=== PATIENT | male | born 1975 | race Two or more races ===

== ENCOUNTER 2021-11-05 13:07 | Inpatient (IN) | payer OTHER ==
[~2021-11-05] VITALS: Ht 162.6 cm; Wt 82.1 kg
[2021-11-05 13:15] VITALS: BP 133/89
[2021-11-05] MEDS ORDERED: ONDANSETRON HCL 4 MG/2 ML VIAL IV PRN (15:00)
[2021-11-05] MEDS ORDERED: ACETAMINOPHEN 650 MG RECT SUPP PR PRN (15:00)
[2021-11-05] MEDS ORDERED: cefTRIAXone 1GM/50ML D5W 50 ML IV ONE (15:00)
[2021-11-05 16:00] VITALS: BP 139/79
[2021-11-05] MEDS: MORPHINE SULFATE INJECTION 2 MG/ML SYRG IV PRN ×2 (16:27→20:56)
[2021-11-05] MEDS: SODIUM CHLORIDE 0.9% 1,000 ML IV SCH (16:28)
[2021-11-05 16:47] VITALS: BP 133/89
[2021-11-05] MEDS ORDERED: LISI20TA28 PO (16:47)
[2021-11-05] MEDS ORDERED: TRAZ100T3 PO (16:47)
[2021-11-05 17:00] VITALS: BP 139/79
[2021-11-05 17:58] LABS: Eosinophils # (auto) 0.1 10 ^3/uL (0-0.8)
[2021-11-05 17:59] LABS: Basophils # (auto) 0.1 10 ^3/uL (0-0.2); Eosinophils % (auto) 1.3 % (0.0-7.0); Lymphocytes % (auto) 21.5 % (10.0-50.0); Mean Corpuscular Hemoglobin 26.9 pg (28.0-32.0); Mean Corpuscular Hgb Conc. 33.5 g/dL (32.0-36.0); Mean Corpuscular Volume 80.4 fL (80.0-100.0); Monocytes # (auto) 1.2 10 ^3/uL (0-1.3); Monocytes % (auto) 13.2 % (0.0-12.0); Neutrophils # (auto) 5.9 10 ^3/uL (1.6-8.6); Nucleated Red Blood Cells % 0.1 %; Red Blood Cells 5.59 10^6/uL (4.5-5.90); Red Cell Distribution Width 14.6 % (11.8-14.3); White Blood Cell 9.3 10^3/uL (4.4-10.8)
[2021-11-05 18:14] LABS: INR 1.05 (0.9-1.15); Partial Thromboplastin Time 30.6 sec (23.6-33.0)
[2021-11-05 18:20] LABS: Albumin 3.7 g/dL (3.4-5.0); Calcium 8.7 mg/dL (8.5-10.1)
[2021-11-05 18:39] LABS: BUN/Creatinine Ratio 29.6; Bilirubin, Total 0.6 mg/dL (0.2-1.0); Total Protein 7.1 g/dL (6.4-8.2)
[2021-11-05] MEDS: PANTOPRAZOLE 40 MG/10 ML VIAL INJ IV SCH (20:56)
[2021-11-05] MEDS: metroNIDAZOLE 500MG/100ML 100 ML IV SCH (20:56)
[2021-11-05 21:30] VITALS: BP 151/82
[2021-11-06] MEDS: SODIUM CHLORIDE 0.9% 1,000 ML IV SCH ×3 (01:00→21:00)
[2021-11-06] MEDS: MORPHINE SULFATE INJECTION 2 MG/ML SYRG IV PRN ×5 (01:12→21:51)
[2021-11-06 05:00] VITALS: BP 146/81
[2021-11-06] MEDS: metroNIDAZOLE 500MG/100ML 100 ML IV SCH ×3 (05:14→21:50)
[2021-11-06 06:09] LABS: Basophils # (auto) 0.1 10 ^3/uL (0-0.2); Basophils % (auto) 0.8 % (0.0-2.0); Eosinophils # (auto) 0.1 10 ^3/uL (0-0.8); Eosinophils % (auto) 0.7 % (0.0-7.0); Hematocrit 42.8 % (41.0-53.0); Hemoglobin 14.5 g/dL (13.5-17.5); Lymphocytes # (auto) 1.7 10 ^3/uL (0.4-5.4); Lymphocytes % (auto) 19.1 % (10.0-50.0); Mean Corpuscular Hemoglobin 27.1 pg (28.0-32.0); Mean Corpuscular Hgb Conc. 33.9 g/dL (32.0-36.0); Mean Corpuscular Volume 79.9 fL (80.0-100.0); Neutrophils # (auto) 5.9 10 ^3/uL (1.6-8.6); Neutrophils % (auto) 68.4 % (37.0-80.0); Nucleated Red Blood Cells % 0.1 %; Red Blood Cells 5.35 10^6/uL (4.5-5.90); Red Cell Distribution Width 14.4 % (11.8-14.3); White Blood Cell 8.7 10^3/uL (4.4-10.8)
[2021-11-06 06:21] LABS: Albumin 3.5 g/dL (3.4-5.0); Calcium 8.2 mg/dL (8.5-10.1); Potassium 3.6 mmol/L (3.5-5.1)
[2021-11-06 06:24] LABS: Bilirubin, Total 0.5 mg/dL (0.2-1.0); Total Protein 6.9 g/dL (6.4-8.2)
[2021-11-06 09:00] VITALS: BP 139/73
[2021-11-06] MEDS: cefTRIAXone 1GM/50ML D5W 50 ML IV SCH (09:08)
[2021-11-06] MEDS: PANTOPRAZOLE 40 MG/10 ML VIAL INJ IV SCH ×2 (09:09→21:50)
[2021-11-06] MEDS ORDERED: GASTROGRAFIN 120 ML SOL ONE (09:17)
[2021-11-06 13:00] VITALS: BP 141/92
[2021-11-06 17:00] VITALS: BP 131/72
[2021-11-06] MEDS: traZODone HCL 50 MG TAB PO SCH (21:50)
[2021-11-06 22:20] VITALS: BP 135/79
[2021-11-07] MEDS: metroNIDAZOLE 500MG/100ML 100 ML IV SCH ×3 (05:44→21:27)
[2021-11-07 05:52] VITALS: BP 138/72
[2021-11-07 06:03] LABS: Basophils # (auto) 0.1 10 ^3/uL (0-0.2); Basophils % (auto) 1.1 % (0.0-2.0); Eosinophils # (auto) 0.3 10 ^3/uL (0-0.8); Monocytes # (auto) 0.9 10 ^3/uL (0-1.3); Nucleated Red Blood Cells % 0.1 %
[2021-11-07 06:06] LABS: Eosinophils % (auto) 4.4 % (0.0-7.0); Hematocrit 40.4 % (41.0-53.0); Hemoglobin 13.9 g/dL (13.5-17.5); Lymphocytes # (auto) 1.6 10 ^3/uL (0.4-5.4); Lymphocytes % (auto) 26.3 % (10.0-50.0); Mean Corpuscular Hemoglobin 27.4 pg (28.0-32.0); Mean Corpuscular Hgb Conc. 34.5 g/dL (32.0-36.0); Mean Corpuscular Volume 79.5 fL (80.0-100.0); Monocytes % (auto) 14.4 % (0.0-12.0); Neutrophils # (auto) 3.3 10 ^3/uL (1.6-8.6); Neutrophils % (auto) 53.8 % (37.0-80.0); Red Blood Cells 5.08 10^6/uL (4.5-5.90); Red Cell Distribution Width 13.8 % (11.8-14.3); White Blood Cell 6.1 10^3/uL (4.4-10.8)
[2021-11-07 06:35] LABS: Potassium 3.7 mmol/L (3.5-5.1)
[2021-11-07 06:39] LABS: BUN/Creatinine Ratio 19.2; Calcium 8.5 mg/dL (8.5-10.1)
[2021-11-07] MEDS: SODIUM CHLORIDE 0.9% 1,000 ML IV SCH ×2 (06:39→17:00)
[2021-11-07 08:00] VITALS: BP 132/84
[2021-11-07] MEDS: cefTRIAXone 1GM/50ML D5W 50 ML IV SCH (09:00)
[2021-11-07] MEDS: MORPHINE SULFATE INJECTION 2 MG/ML SYRG IV PRN ×3 (09:00→21:27)
[2021-11-07] MEDS: PANTOPRAZOLE 40 MG/10 ML VIAL INJ IV SCH ×2 (10:02→21:27)
[2021-11-07 12:35] VITALS: BP 131/80
[2021-11-07 16:00] VITALS: BP 135/81
[2021-11-07] MEDS ORDERED: MAGNESIUM CITRATE SOLUTION 300 ML BTL PO ONE (21:00)
[2021-11-07] MEDS: traZODone HCL 50 MG TAB PO SCH (21:27)
[2021-11-07 22:00] VITALS: BP 139/82
[2021-11-08] VITALS (7 sets, daily range): BP systolic 113–139; BP diastolic 68–90
[2021-11-08] MEDS: MORPHINE SULFATE INJECTION 2 MG/ML SYRG IV PRN ×4 (02:35→21:39)
[2021-11-08] MEDS: SODIUM CHLORIDE 0.9% 1,000 ML IV SCH ×3 (02:36→23:00)
[2021-11-08] MEDS: metroNIDAZOLE 500MG/100ML 100 ML IV SCH ×3 (05:53→21:19)
[2021-11-08] MEDS ORDERED: MAGNESIUM CITRATE SOLUTION 300 ML BTL PO ONE (08:00)
[2021-11-08] MEDS: PANTOPRAZOLE 40 MG/10 ML VIAL INJ IV SCH ×2 (09:02→21:21)
[2021-11-08] MEDS: LISINOPRIL 10 MG TAB PO SCH (09:03)
[2021-11-08] MEDS ORDERED: LIDOCAINE VISCOUS 2% 15ML UD ONE (12:10)
[2021-11-08] MEDS ORDERED: fentaNYL CITRATE 100 MCG/2 ML VL ONE (14:11)
[2021-11-08] MEDS ORDERED: MEPERIDINE HCL (25 MG/ML) 1ML VIAL ONE (14:11)
[2021-11-08] MEDS ORDERED: MIDAZOLAM HCL 2MG/2ML 2ml VIAL (1mg/ml) ONE (14:12)
[2021-11-08] MEDS ORDERED: DexAMETHasone SOD PHOS 10MG/1ML VIAL INJ ONE (14:15)
[2021-11-08] MEDS ORDERED: PROPOFOL 10 MG/ML 20 ML IV ONE (14:15)
[2021-11-08] MEDS ORDERED: MIDAZOLAM HCL 2MG/2ML 2ml VIAL (1mg/ml) IV PRN (14:45)
[2021-11-08] MEDS ORDERED: ePHEDrine SULFATE 50 MG/ML AMP IV PRN (14:45)
[2021-11-08] MEDS ORDERED: MORPHINE SULFATE 4 MG/ML SYR/VIAL IV PRN (14:45)
[2021-11-08] MEDS ORDERED: HYDROmorphone HCL 2 MG/ML VL IV PRN (14:45)
[2021-11-08] MEDS ORDERED: LABETALOL HCL 5 MG/ML 4ML SYRINGE IV PRN (14:45)
[2021-11-08] MEDS ORDERED: ONDANSETRON HCL 4 MG/2 ML VIAL IV PRN (14:45)
[2021-11-08] MEDS: SUCRALFATE 1 GM/10 ML ORAL SUSP PO SCH ×2 (16:50→21:22)
[2021-11-08] MEDS: traZODone HCL 50 MG TAB PO SCH (21:22)
[2021-11-09] VITALS: BP 102/55
[2021-11-09] MEDS: MORPHINE SULFATE INJECTION 2 MG/ML SYRG IV PRN (03:53)
[2021-11-09 05:00] VITALS: BP 113/69
[2021-11-09] MEDS: metroNIDAZOLE 500MG/100ML 100 ML IV SCH ×2 (05:40→14:00)
[2021-11-09] MEDS: SUCRALFATE 1 GM/10 ML ORAL SUSP PO SCH ×2 (06:17→11:30)
[2021-11-09 08:00] VITALS: BP 151/65
[2021-11-09] MEDS: SODIUM CHLORIDE 0.9% 1,000 ML IV SCH (08:36)
[2021-11-09] MEDS: PANTOPRAZOLE 40 MG/10 ML VIAL INJ IV SCH (10:00)
[2021-11-09] MEDS: LISINOPRIL 10 MG TAB PO SCH (10:00)
[2021-11-09] MEDS ORDERED: SUCR1SUS10 PO (12:32)
[2021-11-09] MEDS ORDERED: PANT40TA2 PO (12:32)
== END 2021-11-09 14:44 | disposition home or self-care (01) | DRG 439 ==
LOC: TELE-WESTW 14:17 → WEST WING 11-06 02:30
PROVIDERS: ADMIT Internal Medicine; ATTEND Internal Medicine
PROC: 0DB68ZX Excision of Stomach, Via Natural or Artificial Opening Endoscopic, Diagnostic (ICD-10-PCS; 2021-11-08)
PROC: 0DB98ZX Excision of Duodenum, Via Natural or Artificial Opening Endoscopic, Diagnostic (ICD-10-PCS; principal; 2021-11-08 14:16)
PROC: 0DBN8ZZ Excision of Sigmoid Colon, Via Natural or Artificial Opening Endoscopic (ICD-10-PCS; 2021-11-08 14:16)
DX: K85.90 Acute pancreatitis without necrosis or infection, unspecified (principal); E44.0 Moderate protein-calorie malnutrition; K22.10 Ulcer of esophagus without bleeding; K29.70 Gastritis, unspecified, without bleeding; G89.4 Chronic pain syndrome; I10 Essential (primary) hypertension; K44.9 Diaphragmatic hernia without obstruction or gangrene; E66.9 Obesity, unspecified; Z20.822 Contact with and (suspected) exposure to COVID-19; K66.0 Peritoneal adhesions (postprocedural) (postinfection); D12.6 Benign neoplasm of colon, unspecified; K64.8 Other hemorrhoids; Z90.49 Acquired absence of other specified parts of digestive tract; Q85.01 Neurofibromatosis, type 1; Z68.31 Body mass index [BMI] 31.0-31.9, adult; Z88.5 Allergy status to narcotic agent; Z88.8 Allergy status to other drugs, medicaments and biological substances
CPT/HCPCS: 36415; 71045; 74250; 80048; 80053; 83690; 85025; 85610; 85652; 85730; 87086; 87426; C9113; G0378; J0696; J1100; J2250; J2405; J2704; J3490

== ENCOUNTER 2022-02-17 14:03 | Inpatient (IN) | payer OTHER ==
[~2022-02-17] VITALS: Ht 165.1 cm; Wt 82.0 kg
[~2022-02-17 14:03] MED LIST: LISI20TA28 PO; PANT40TA2 PO; SUCR1SUS10 PO; TRAZ100T3 PO
[2022-02-17] MEDS: MORPHINE SULFATE 4 MG/ML SYR/VIAL IV PRN (20:47)
[2022-02-17] MEDS: SODIUM CHLORIDE 0.9% 1,000 ML IV SCH (21:00)
[2022-02-17] MEDS ORDERED: DEXT15CA16 PO (21:40)
[2022-02-17] MEDS ORDERED: TRAZ100T3 PO (21:40)
[2022-02-17 22:40] VITALS: BP 145/82
[2022-02-18] MEDS: MORPHINE SULFATE 4 MG/ML SYR/VIAL IV PRN ×5 (01:15→19:38)
[2022-02-18 05:22] VITALS: BP 146/87
[2022-02-18] MEDS: SODIUM CHLORIDE 0.9% 1,000 ML IV SCH ×3 (05:56→19:43)
[2022-02-18 06:17] LABS: Basophils # (auto) 0.1 10 ^3/uL (0-0.2); Eosinophils # (auto) 0.1 10 ^3/uL (0-0.8); Monocytes # (auto) 0.7 10 ^3/uL (0-1.3)
[2022-02-18 06:19] LABS: Basophils % (auto) 1.1 % (0.0-2.0); Hematocrit 40.6 % (41.0-53.0); Hemoglobin 13.7 g/dL (13.5-17.5); Lymphocytes # (auto) 1.1 10 ^3/uL (0.4-5.4); Lymphocytes % (auto) 15.7 % (10.0-50.0); Mean Corpuscular Hemoglobin 26.8 pg (28.0-32.0); Mean Corpuscular Hgb Conc. 33.6 g/dL (32.0-36.0); Mean Corpuscular Volume 79.6 fL (80.0-100.0); Monocytes % (auto) 9.5 % (0.0-12.0); Neutrophils % (auto) 71.7 % (37.0-80.0); Red Cell Distribution Width 15.1 % (11.8-14.3); White Blood Cell 6.9 10^3/uL (4.4-10.8)
[2022-02-18 06:42] LABS: Albumin 3.6 g/dL (3.4-5.0); BUN/Creatinine Ratio 17.6; Calcium 8.9 mg/dL (8.5-10.1)
[2022-02-18 06:45] LABS: Bilirubin, Total 0.4 mg/dL (0.2-1.0); Total Protein 6.8 g/dL (6.4-8.2)
[2022-02-18 08:10] VITALS: BP 148/84
[2022-02-18 09:00] VITALS: BP 151/87
[2022-02-18] MEDS: ENOXAPARIN SOD 40 MG/0.4 ML SYRINGE SC SCH (10:24)
[2022-02-18] MEDS ORDERED: GASTROGRAFIN 120 ML SOL ONE (12:17)
[2022-02-18 13:00] VITALS: BP 153/93
[2022-02-18] MEDS: ONDANSETRON HCL 4 MG/2 ML VIAL IV PRN ×2 (15:25→19:32)
[2022-02-18 17:07] VITALS: BP 136/88
[2022-02-18 22:23] VITALS: BP 156/96
[2022-02-19] MEDS: MORPHINE SULFATE 4 MG/ML SYR/VIAL IV PRN ×3 (03:59→08:17)
[2022-02-19] MEDS: ONDANSETRON HCL 4 MG/2 ML VIAL IV PRN ×3 (04:00→08:52)
[2022-02-19] MEDS: SODIUM CHLORIDE 0.9% 1,000 ML IV SCH ×2 (04:57→12:55)
[2022-02-19 05:14] VITALS: BP 149/86
[2022-02-19 07:12] LABS: Magnesium 2.3 mg/dL (1.6-2.6); Potassium 4.1 mmol/L (3.5-5.1)
[2022-02-19 07:22] LABS: Albumin 3.5 g/dL (3.4-5.0); BUN/Creatinine Ratio 19.7; Bilirubin, Total 0.4 mg/dL (0.2-1.0); Calcium 9.2 mg/dL (8.5-10.1); Total Protein 7.3 g/dL (6.4-8.2)
[2022-02-19 08:00] VITALS: BP 133/84
[2022-02-19 09:00] VITALS: BP 133/84
[2022-02-19] MEDS: ENOXAPARIN SOD 40 MG/0.4 ML SYRINGE SC SCH (09:55)
[2022-02-19 11:50] VITALS: BP 133/84
== END 2022-02-19 16:05 | disposition home or self-care (01) | DRG 390 ==
LOC: CENTRAL 17:59
PROVIDERS: ADMIT Internal Medicine; ATTEND Internal Medicine
PROC: 0D9670Z Drainage of Stomach with Drainage Device, Via Natural or Artificial Opening (ICD-10-PCS; principal; 2022-02-17)
DX: K56.609 Unspecified intestinal obstruction, unspecified as to partial versus complete obstruction (principal); G89.29 Other chronic pain; I10 Essential (primary) hypertension; Q85.01 Neurofibromatosis, type 1; Z89.421 Acquired absence of other right toe(s)
CPT/HCPCS: 36415; 71045; 74250; 80053; 82150; 83690; 83735; 85025; 87081; G0378; J2405